=== PATIENT | male | born 1990 | race Caucasian/White ===

== ENCOUNTER 2025-05-07 13:06 | Emergency (ER) | payer BC ==
[~2025-05-07] VITALS: Ht 190.5 cm; Wt 124.7 kg
[2025-05-07 13:21] VITALS: BP 128/81
[2025-05-07 13:32] LABS: PLATELET COUNT (AUTO) 168 K/uL (152-348); RED BLOOD CELL COUNT(AUTO) 4.40 MIL/uL (4.06-5.63); RED CELL DISTRIBUTION WIDTH 14.8 % (12.1-16.2); WHITE BLOOD COUNT (AUTO) 6.7 K/uL (3.6-10.2)
[2025-05-07] MEDS ORDERED: LEVE500T9 PO (13:39)
[2025-05-07] MEDS ORDERED: ARIP20TA4 PO (13:39)
[2025-05-07 13:52] LABS: *BLOOD, URINE NEGATIVE (NEGATIVE); *CLARITY,URINE CLEAR (CLEAR); *COLOR,URINE YELLOW (YELLOW); *KETONES,URINE TRACE (NEGATIVE); *UROBILINOGEN,URINE 0.2 E.U./dl (NORMAL); LEUKOCYTE ESTERASE ,URINE NEGATIVE (NEGATIVE); NITRITE, URINE NEGATIVE (NEGATIVE); UGLUCOSE NEGATIVE (NEGATIVE)
[2025-05-07 13:56] LABS: ETHANOL < 3 MG/DL (0-10)
[2025-05-07 14:04] LABS: *AMPHETAMINE, URINE NEGATIVE (NEGATIVE); *BARBITURATE, URINE NEGATIVE (NEGATIVE); *BENZODIAZEPINE, URINE NEGATIVE (NEGATIVE); *CANNABINOID, URINE POSITIVE (NEGATIVE); *COCCAINE, URINE NEGATIVE (NEGATIVE); *OPIATE, URINE NEGATIVE (NEGATIVE); *PHENCYCLIDINE SCREEN,URINE NEGATIVE (NEGATIVE); FENTANYL, URINE POSITIVE (NEGATIVE)
[2025-05-07 14:10] LABS: *BILIRUBIN,URIN 1+ (NEGATIVE)
[2025-05-07 14:12] LABS: *PROTEIN,URINE 1+ (NEGATIVE)
[2025-05-07 14:22] LABS: CREATININE 0.9 mg/dL (0.6-1.3); SODIUM SERUM 143 mmol/L (136-145); UREA NITROGEN, BLOOD 8 mg/dL (7-18)
[2025-05-07 14:28] LABS: ASPARTATE AMINOTRANSFERASE 5 U/L (15-37); TOTAL PROTEIN, SERUM 7.3 g/dL (6.4-8.2)
[2025-05-07 14:32] LABS: SQUAMOUS EPITHELIAL CELL,UR MODERATE /HPF (NONE SEEN)
[2025-05-07] MEDS ORDERED: NALO4SPR BNOSTRILS (14:36)
[2025-05-07 14:59] VITALS: BP 128/81; TEMP 97.8; O2SAT 94
== END 2025-05-07 15:00 | disposition home or self-care (01) ==
LOC: ER 13:06
DX: Z00.00 Encounter for general adult medical examination without abnormal findings (principal); G40.909 Epilepsy, unspecified, not intractable, without status epilepticus; F19.10 Other psychoactive substance abuse, uncomplicated; F31.9 Bipolar disorder, unspecified; F15.10 Other stimulant abuse, uncomplicated; Z86.69 Personal history of other diseases of the nervous system and sense organs; Z79.899 Other long term (current) drug therapy; Z88.7 Allergy status to serum and vaccine
CPT/HCPCS: 85025; A4606; A4663; G0480